=== PATIENT | female | born 1985 | race Caucasian/White ===

== ENCOUNTER 2016-08-19 21:28 | Emergency (ER) | payer MEDICAID, OTHER ==
[~2016-08-19] VITALS: Ht 160 cm; Wt 63.6 kg
[2016-08-19 23:04] LABS: APPEARANCE,URINE CLOUDY (CLEAR); GLUCOSE, URINE (UA) NEGATIVE (NEGATIVE); KETONES,URINE NEGATIVE (NEGATIVE); LEUKOCYTE ESTERASE ,URINE NEGATIVE (NEGATIVE); OCCULT BLOOD,URINE NEGATIVE (NEGATIVE); PH,URINE 5.5 (5.0-8.0); PROTEIN,URINE NEGATIVE (NEGATIVE)
[2016-08-19 23:07] LABS: RBC,URINE 0-2 /HPF (0-2); SQUAMOUS EPITHELIAL CELL,UR Few /LPF (None Seen); WBC,URINE 0-2 /HPF (0-5)
[2016-08-19 23:39] VITALS: BP 130/60
[2016-08-20] MEDS ORDERED: LIDOCAINE HCL BUFFERED 1% 20 ML VIAL ONE (00:11)
[2016-08-20] MEDS: SULFAMETHOX/TRIMETH DS 800-160 MG/TABLET PO ONE (00:13)
[2016-08-20] MEDS: HYDROCODONE/ACETAMINOPHEN 5-325 MG TABLET PO ONE (00:14)
[2016-08-20] MEDS: LIDOCAINE HCL BUFFERED 1% 20 ML VIAL INJ ONE (00:14)
[2016-08-20] MEDS: CEPHALEXIN MONOHYDRATE 500 MG CAPSULE PO ONE (00:14)
== END 2016-08-20 01:10 | disposition home or self-care (01) ==
LOC: EMS 21:30
DX: N75.1 Abscess of Bartholin's gland (principal)
CPT/HCPCS: 56420; 81001; 81025; 99284; J3490

== ENCOUNTER 2016-11-20 07:51 | Emergency (ER) | payer MEDICAID ==
[~2016-11-20] VITALS: Ht 154.9 cm; Wt 63.5 kg
[2016-11-20] MEDS ORDERED: IOVERSOL 320 MG/ML 100 ML VIAL ONE (08:50)
[2016-11-20] MEDS ORDERED: SODIUM CHLORIDE 0.9% 100 ML ONE (08:50)
[2016-11-20 08:56] LABS: ANION GAP 11 mmol/L (8-16); CALCIUM, TOTAL 9.5 mg/dL (8.8-10.5); CARBON DIOXIDE 27 mmol/L (22-29); CHLORIDE 105 mmol/L (98-107); GLOMERULAR FILTR. RATE CALC > 60 mL/min (>60); POTASSIUM 3.7 mmol/L (3.5-5.1); SODIUM SERUM 143 mmol/L (136-145); UREA NITROGEN, BLOOD 13 mg/dL (7-18)
[2016-11-20 10:15] VITALS: BP 119/71
== END 2016-11-20 12:23 | disposition home or self-care (01) ==
LOC: EMS 07:52
DX: K11.21 Acute sialoadenitis (principal); J00 Acute nasopharyngitis [common cold]
CPT/HCPCS: 36415; 70491; 80048; 84703; 99285; J7050; Q9967

== ENCOUNTER 2021-08-31 22:15 | Emergency (ER) | payer BC, MEDICAID ==
[~2021-08-31] VITALS: Ht 154.9 cm; Wt 88.9 kg
[2021-09-01 00:31] LABS: BASOPHILS % (AUTO) 0.6 % (0.0-2.0); EOSINOPHILS % (AUTO) 1.4 % (1.0-6.0); HEMATOCRIT 36.6 % (36-46); HEMOGLOBIN 12.5 g/dL (12.0-16.0); LYMPHOCYTES # (AUTO) 2.1 K/uL (1.0-4.8); LYMPHOCYTES % (AUTO) 24.5 % (22.0-44.0); MEAN CORPUSCULAR HEMOGLOBIN 26.6 pg (26.0-34.0); MEAN CORPUSCULAR HGB CONC 34.1 G/dL (31.0-37.0); MEAN CORPUSCULAR VOLUME 78 fL (80-100); MONOCYTES # (AUTO) 0.6 K/uL (0.1-1.0); MONOCYTES % (AUTO) 7.2 % (2.0-9.0); NEUTROPHILS # (AUTO) 5.7 K/uL (1.8-7.7); NEUTROPHILS % (AUTO) 66.3 % (40.0-70.0); PLATELET COUNT (AUTO) 202 K/uL (150-450); RED BLOOD CELL COUNT(AUTO) 4.69 MIL/uL (4.00-5.20); RED CELL DISTRIBUTION WIDTH 14.4 % (11.5-14.5)
[2021-09-01 00:42] LABS: ANION GAP 7 mmol/L (8-16); CALCIUM, TOTAL 8.7 mg/dL (8.8-10.5); CARBON DIOXIDE 27 mmol/L (22-29); CHLORIDE 100 mmol/L (98-107); CREATININE 0.55 mg/dL (0.60-1.30); GLOMERULAR FILTR. RATE CALC > 60 mL/min (>60); GLUCOSE,RANDOM 98 mg/dL (70-110); POTASSIUM 3.9 mmol/L (3.5-5.1); SODIUM SERUM 134 mmol/L (136-145); UREA NITROGEN, BLOOD 15 mg/dL (7-18)
[2021-09-01 00:50] LABS: HCG,QUANTITATIVE < 1 mIU/mL (0-6)
[2021-09-01 02:19] LABS: APPEARANCE,URINE CLEAR (CLEAR); BILIRUBIN,URINE NEGATIVE (NEGATIVE); GLUCOSE, URINE (UA) NEGATIVE (NEGATIVE); KETONES,URINE NEGATIVE (NEGATIVE); LEUKOCYTE ESTERASE ,URINE NEGATIVE (NEGATIVE); NITRATE,URINE NEGATIVE (NEGATIVE); OCCULT BLOOD,URINE NEGATIVE (NEGATIVE); PH,URINE 5.5 (5.0-8.0); PROTEIN,URINE NEGATIVE (NEGATIVE); SPECIFIC GRAVITIY, URINE 1.016 (1.003-1.030); UROBILINOGEN,URINE <=1.0 mg/dL (<=1.0)
[2021-09-01 02:55] LABS: BACTERIA,URINE None Seen /HPF (None Seen); RBC,URINE 0-2 /HPF (0-2); SQUAMOUS EPITHELIAL CELL,UR Few /LPF (None Seen); WBC,URINE 0-2 /HPF (0-5)
[2021-09-01 07:42] VITALS: BP 123/75
== END 2021-09-01 07:45 | disposition home or self-care (01) ==
LOC: EMS 22:42
DX: N83.202 Unspecified ovarian cyst, left side (principal)
CPT/HCPCS: 74176; 80048; 81001; 84702; 85025; 99285